=== PATIENT | male | born 1985 | race Two or more races ===

== ENCOUNTER 2022-02-13 14:52 | Emergency (ER) | payer SELFPAY ==
[2022-02-13] MEDS ORDERED: Metoclopramide 10 MG/2 ML SDV IM ONE (15:19)
[2022-02-13] MEDS ORDERED: Ketorolac 30 MG/ML SDV IM ONE (15:19)
[2022-02-13] MEDS ORDERED: diphenhydrAMINE 50 MG/ML SDV IM ONE (15:19)
== END 2022-02-13 15:55 | disposition home or self-care (01) ==
LOC: JD.ED 14:52
DX: S06.0X0A Concussion without loss of consciousness, initial encounter (principal); S00.03XA Contusion of scalp, initial encounter; Y04.0XXA Assault by unarmed brawl or fight, initial encounter
CPT/HCPCS: 70450; 96372; 99284; J1200; J1885; J2765; 99283

== ENCOUNTER 2022-04-06 20:22 | Emergency (ER) | payer SELFPAY ==
[2022-04-06] MEDS ORDERED: Sodium Chloride 0.9% 10 ML Syringe FLUSH PRN (21:15)
[2022-04-06] MEDS ORDERED: LORazepam 2 MG/ML SDV IVPUSH ONE (21:16)
[2022-04-06] MEDS ORDERED: Ondansetron 4 MG/2 ML SDV IVPUSH ONE (21:16)
[2022-04-06] MEDS ORDERED: Sodium Chloride 0.9% 1,000 ML IV SCH (21:30)
[2022-04-06] MEDS ORDERED: Lactated Ringers 1,000 ML IV ONE (22:45)
== END 2022-04-07 00:19 | disposition home or self-care (01) ==
LOC: JD.ED 20:22
DX: R19.7 Diarrhea, unspecified (principal); E86.0 Dehydration; R00.2 Palpitations; R06.00 Dyspnea, unspecified; R00.0 Tachycardia, unspecified; I10 Essential (primary) hypertension; K21.9 Gastro-esophageal reflux disease without esophagitis; F17.210 Nicotine dependence, cigarettes, uncomplicated; Z20.822 Contact with and (suspected) exposure to COVID-19
CPT/HCPCS: 36415; 71045; 80053; 84443; 85025; 85379; 87635; 93005; 96361; 96374; 96375; 99285; J2060; J2405; J3490; J7030; J7120; 93010; 99284; U0002

== ENCOUNTER 2022-12-07 09:56 | Emergency (ER) | payer SELFPAY ==
[2022-12-07] MEDS ORDERED: cefTRIAXone 2 GM in Sodium Chloride 0.9% 100 ML IV ONE (11:28)
[2022-12-07] MEDS ORDERED: Ketorolac 30 MG/ML SDV IVPUSH ONE (11:28)
[2022-12-07] MEDS ORDERED: Doxycycline Monohydrate 100 MG Cap PO ONE (12:21)
== END 2022-12-07 12:52 | disposition home or self-care (01) ==
LOC: JD.ED 09:56
DX: L03.115 Cellulitis of right lower limb (principal); I10 Essential (primary) hypertension; J45.909 Unspecified asthma, uncomplicated; Z72.0 Tobacco use
CPT/HCPCS: 96365; 96375; 99282; A9270; J0696; J1885; 99283